=== PATIENT | male | born 1950 | race Two or more races ===

== ENCOUNTER 2023-01-21 14:41 | Inpatient (IN) | payer BC, OTHER ==
[~2023-01-21] VITALS: Ht 172.7 cm; Wt 76.0 kg
[2023-01-21 15:58] VITALS: PULSE 85; RESP 16; O2SAT 95
[2023-01-21] MEDS ORDERED: hydrALAZINE HCL 20 MG/ML VL IV PRN (16:30)
[2023-01-21] MEDS ORDERED: ONDANSETRON HCL 4 MG/2 ML VIAL IV PRN (16:30)
[2023-01-21] MEDS ORDERED: CHOL20007 PO (16:35)
[2023-01-21] MEDS ORDERED: DEXA2TAB PO (16:35)
[2023-01-21] MEDS ORDERED: SENN1TAB14 PO (16:35)
[2023-01-21] MEDS ORDERED: ASPI81CH59 PO (16:35)
[2023-01-21] MEDS ORDERED: ASCO500T16 PO (16:35)
[2023-01-21] MEDS ORDERED: TAMS0.4C36 PO (16:35)
[2023-01-21] MEDS ORDERED: ALBUTEROL MEDNEB 2.5 mg/3ml NEB NEB PRN (16:45)
[2023-01-21] MEDS: HYDROcodone-ACET 5/325MG TAB PO PRN (18:37)
[2023-01-21] MEDS: TAMSULOSIN HYDROCHLORIDE 0.4 MG CAP PO SCH (18:37)
[2023-01-21 20:00] VITALS: O2SAT 0
[2023-01-21 21:44] VITALS: BP 116/69; PULSE 98; RESP 20; TEMP 98.5; O2SAT 94
[2023-01-21 22:42] VITALS: O2SAT 94
[2023-01-22] VITALS (11 sets, daily range): BP systolic 101–135; BP diastolic 61–77; PULSE 82–109; RESP 16–22; TEMP 98.3–98.6; O2SAT 0–97
[2023-01-22 06:48] LABS: Basophils # (auto) 0 10 ^3/uL (0-0.2); Basophils % (auto) 0.7 % (0.0-2.0); Eosinophils # (auto) 0.1 10 ^3/uL (0-0.8); Hematocrit 39.9 % (41.0-53.0); Hemoglobin 13.1 g/dL (13.5-17.5); Lymphocytes % (auto) 21.7 % (10.0-50.0); Mean Corpuscular Hemoglobin 27.5 pg (28.0-32.0); Mean Corpuscular Hgb Conc. 32.8 g/dL (32.0-36.0); Mean Corpuscular Volume 83.6 fL (80.0-100.0); Monocytes # (auto) 0.3 10 ^3/uL (0-1.3); Neutrophils # (auto) 3.3 10 ^3/uL (1.6-8.6); Neutrophils % (auto) 69.6 % (37.0-80.0); Red Blood Cells 4.77 10^6/uL (4.5-5.90); Red Cell Distribution Width 15.9 % (11.8-14.3); White Blood Cell 4.7 10^3/uL (4.4-10.8)
[2023-01-22 06:50] LABS: Chloride 103 mmol/L (98-107); Potassium 4.2 mmol/L (3.5-5.1); Sodium 135 mmol/L (136-145)
[2023-01-22 06:51] LABS: Anion Gap 6 (5-15); Carbon Dioxide 26 mmol/L (20-30)
[2023-01-22 06:52] LABS: Calcium 9.5 mg/dL (8.7-10.4)
[2023-01-22 06:56] LABS: Glucose 104 mg/dL (74-106)
[2023-01-22 06:57] LABS: BUN/Creatinine Ratio 9.4 (10.0-20.0); Blood Urea Nitrogen 11 mg/dL (9-23)
[2023-01-22 06:59] LABS: INR 1.05 (0.9-1.15); Partial Thromboplastin Time 28.5 SEC (24.5-34.5)
[2023-01-22 08:28] LABS: Urine Bacteria NONE SEEN /hpf (None Seen); Urine Blood Negative /uL (Negative); Urine Clarity Clear (Clear); Urine Color Yellow (Yellow); Urine Mucus FEW (None Seen); Urine Protein, UAD Negative (Negative); Urine Specific Gravity 1.029 (1.001-1.035); Urine Urobilinogen Normal (Negative); Urine WBC 1 /hpf (0 - 3)
[2023-01-22] MEDS: FAMOTIDINE 20 MG TAB PO SCH (09:41)
[2023-01-22] MEDS: HYDROcodone-ACET 5/325MG TAB PO PRN (15:48)
[2023-01-22] MEDS: TAMSULOSIN HYDROCHLORIDE 0.4 MG CAP PO SCH (18:29)
[2023-01-22 18:52] LABS: COVID19 ANTIGEN SOFIA FIA NEGATIVE (NEGATIVE)
[2023-01-23] VITALS (20 sets, daily range): BP systolic 100–133; BP diastolic 66–87; PULSE 73–101; RESP 13–93; TEMP 98.1–98.8; O2SAT 0–100
[2023-01-23] MEDS ORDERED: VANCOMYCIN HCL 1000 MG VL ONE (09:00)
[2023-01-23] MEDS ORDERED: TRANEXAMIC ACID 20 ML ONE (09:02)
[2023-01-23] MEDS ORDERED: BUPIVACAINE HCL 0.25% P/F 10 ML VIAL ONE (09:02)
[2023-01-23] MEDS ORDERED: ceFAZolin 2 GM/D5W100ml 100 ML IV ONE (09:03)
[2023-01-23] MEDS ORDERED: TETRACAINE 1% INJ 2 ML VIAL IJ ONE (09:12)
[2023-01-23] MEDS ORDERED: MIDAZOLAM HCL 2MG/2ML 2ml VIAL (1mg/ml) ONE (09:14)
[2023-01-23] MEDS ORDERED: fentaNYL CITRATE 100 MCG/2 ML VL ONE (09:14)
[2023-01-23] MEDS ORDERED: MORPHINE SULF PF 5 MG/10 ML VIAL ONE (09:14)
[2023-01-23] MEDS: FAMOTIDINE 20 MG TAB PO SCH (10:00)
[2023-01-23] MEDS ORDERED: MIDAZOLAM HCL 2MG/2ML 2ml VIAL (1mg/ml) IV PRN (10:00)
[2023-01-23] MEDS ORDERED: HYDROmorphone HCL 2 MG/ML VL/or syr IV PRN (10:00)
[2023-01-23] MEDS ORDERED: DexAMETHasone SOD PHOS 10MG/1ML VIAL INJ IV PRN (10:00)
[2023-01-23] MEDS ORDERED: ONDANSETRON HCL 4 MG/2 ML VIAL IV PRN ×2 (10:00)
[2023-01-23] MEDS ORDERED: NALOXONE HCL 0.4 MG/ML VIAL IV PRN (10:00)
[2023-01-23] MEDS ORDERED: ePHEDrine SULFATE 50 MG/ML AMP IV PRN (10:00)
[2023-01-23] MEDS ORDERED: LABETALOL HCL 5 MG/ML 4ML SYRINGE IV PRN (10:00)
[2023-01-23] MEDS ORDERED: PROPOFOL 10 MG/ML 20 ML IV ONE (10:18)
[2023-01-23] MEDS ORDERED: DexAMETHasone SOD PHOS 10MG/1ML VIAL INJ ONE (10:19)
[2023-01-23] MEDS ORDERED: ceFAZolin 1GM/50ML 50 ML IV SCH (10:45)
[2023-01-23] MEDS: LACTATED RINGER'S 1,000 ML IV SCH ×2 (11:02→20:45)
[2023-01-23] MEDS ORDERED: CARB200T4 PO (12:34)
[2023-01-23] MEDS ORDERED: CETI10TA2 PO (12:34)
[2023-01-23] MEDS ORDERED: BISA-65 PO (12:34)
[2023-01-23] MEDS ORDERED: SENN-177 PO (12:34)
[2023-01-23] MEDS ORDERED: PRAV20TA3 PO (12:37)
[2023-01-23] MEDS: ceFAZolin 1GM/50ML 50 ML IV SCH ×2 (17:32→21:49)
[2023-01-23] MEDS: TAMSULOSIN HYDROCHLORIDE 0.4 MG CAP PO SCH (17:32)
[2023-01-23] MEDS: SODIUM CHLOR 0.9% PF (SALINE LOCK) 10ML VIAL/SYR IV SCH ×2 (17:32→21:49)
[2023-01-23] MEDS: MORPHINE SULFATE INJ 2 MG/ml SYRG IV PRN (17:40)
[2023-01-24] VITALS (23 sets, daily range): BP systolic 106–158; BP diastolic 69–97; PULSE 81–118; RESP 14–20; TEMP 97.9–99; O2SAT 0–99
[2023-01-24] MEDS: ceFAZolin 1GM/50ML 50 ML IV SCH (03:55)
[2023-01-24] MEDS: LACTATED RINGER'S 1,000 ML IV SCH ×2 (05:46→16:45)
[2023-01-24] MEDS: SODIUM CHLOR 0.9% PF (SALINE LOCK) 10ML VIAL/SYR IV SCH ×3 (05:51→21:36)
[2023-01-24 07:11] LABS: Hematocrit 34.3 % (41.0-53.0); Hemoglobin 11.3 g/dL (13.5-17.5)
[2023-01-24 09:18] LABS: Hepatitis B Surface Antigen Negative (Negative)
[2023-01-24] MEDS: FAMOTIDINE 20 MG TAB PO SCH (09:32)
[2023-01-24] MEDS: ASPirin 81 mg TAB PO SCH (09:32)
[2023-01-24] MEDS: PRAVASTATIN SODIUM 20 MG TAB PO SCH (09:32)
[2023-01-24] MEDS: SENNA 8.6 MG TAB PO SCH (09:32)
[2023-01-24] MEDS: BISACODYL 5 MG EC TAB PO SCH (09:32)
[2023-01-24] MEDS: DexAMETHasone 4 MG TAB PO SCH (09:33)
[2023-01-24 09:40] LABS: Hepatitis C Antibody Negative (Negative)
[2023-01-24] MEDS ORDERED: OSIMERTINIB PO SCH (10:00)
[2023-01-24] MEDS ORDERED: carBAMazepine 200 MG TAB PO SCH (10:00)
[2023-01-24] MEDS: OSIMERTINIB PO SCH (10:18)
[2023-01-24] MEDS: CETIRIZINE 10 MG PO SCH (10:18)
[2023-01-24] MEDS: HYDROcodone-ACET 5/325MG TAB PO PRN (11:17)
[2023-01-24] MEDS: TAMSULOSIN HYDROCHLORIDE 0.4 MG CAP PO SCH (17:07)
[2023-01-25] VITALS (9 sets, daily range): BP systolic 101–140; BP diastolic 58–76; PULSE 101–118; RESP 18–20; TEMP 98–98.9; O2SAT 0–98
[2023-01-25] MEDS: MORPHINE SULFATE INJ 2 MG/ml SYRG IV PRN (04:04)
[2023-01-25] MEDS: SODIUM CHLOR 0.9% PF (SALINE LOCK) 10ML VIAL/SYR IV SCH ×2 (05:10→18:05)
[2023-01-25] MEDS: BISACODYL 5 MG EC TAB PO SCH (09:54)
[2023-01-25] MEDS: SENNA 8.6 MG TAB PO SCH (09:54)
[2023-01-25] MEDS: ASPirin 81 mg TAB PO SCH (09:55)
[2023-01-25] MEDS: FAMOTIDINE 20 MG TAB PO SCH (09:55)
[2023-01-25] MEDS: DexAMETHasone 4 MG TAB PO SCH (09:55)
[2023-01-25] MEDS: OSIMERTINIB PO SCH (09:55)
[2023-01-25] MEDS: CETIRIZINE 10 MG PO SCH (09:55)
[2023-01-25] MEDS: PRAVASTATIN SODIUM 20 MG TAB PO SCH (09:55)
[2023-01-25] MEDS ORDERED: OSIMERTINIB PO SCH (10:00)
[2023-01-25 13:11] LABS: COVID19 ANTIGEN SOFIA FIA NEGATIVE (NEGATIVE)
[2023-01-25] MEDS: TAMSULOSIN HYDROCHLORIDE 0.4 MG CAP PO SCH (18:02)
[2023-01-26] MEDS ORDERED: TAGRISSO 80 MG PO SCH (10:00)
== END 2023-01-25 21:32 | DRG 522 ==
LOC: WEST WING 15:18 → UNDOADMIN 15:18 → WEST WING 16:17 → TELE-WESTW 01-23 13:04
PROVIDERS: ADMIT Internal Medicine; ATTEND Internal Medicine
PROC: 0SR90JZ Replacement of Right Hip Joint with Synthetic Substitute, Open Approach (ICD-10-PCS; principal; 2023-01-23 09:15)
DX: S72.091A Other fracture of head and neck of right femur, initial encounter for closed fracture (principal); I10 Essential (primary) hypertension; Z20.822 Contact with and (suspected) exposure to COVID-19; E78.5 Hyperlipidemia, unspecified; N40.0 Benign prostatic hyperplasia without lower urinary tract symptoms; W18.39XA Other fall on same level, initial encounter; Y93.89 Activity, other specified; Y92.89 Other specified places as the place of occurrence of the external cause; Z90.2 Acquired absence of lung [part of]; Z85.118 Personal history of other malignant neoplasm of bronchus and lung; Z87.891 Personal history of nicotine dependence; Y99.8 Other external cause status
CPT/HCPCS: 36415; 71045; 72170; 80048; 81001; 85014; 85018; 85025; 85610; 85730; 86803; 86850; 86900; 86901; 87340; 87426; 93005; 93306; 94060; 97110; 97116; 97163; 97530; C1776; G0378; J0690; J1100; J2250; J2704; J3490